=== PATIENT | male | born 1955 | race Caucasian/White ===

== ENCOUNTER → 2025-01-30 | Day surgery (SDC) | payer MEDICARE, OTHER ==
[2025-01-24 10:16] LABS: BASOPHILS % 0.5 % (0.0-1.0); EOSINOPHILS % 5.9 % (0.0-6.0); LYMPHOCYTES % 25.2 % (18.0-39.1); MONOCYTES % 10.0 % (4.4-11.3); NEUTROPHILS % 57.9 % (38.7-80.0); RED CELL DISTRIBUTION WIDTH 11.9 % (11.7-14.4)
[~2025-01-30] MED LIST: ACETAMINOPHEN-1 EAC4 PO; CIALIS5 MG PO; DEXAMETHASONE SOD PHOS INJ 4 MG/ML SDV ONE; FENTANYL CITRATE/PF 100MCG/2 ML INJ ONE; GLYCOPYRROLATE INJ 0.2 MG/ML VIAL ONE; KETOROLAC TROMETHAMINE 30 MG/ML VIAL ONE; LIDOCAINE HCL 2% LOCAL INJ 5 ML SDV VIAL INJ ONE; LOSARTAN POTAS100 MG PO; MIDAZOLAM HCL 2 MG/2 ML VIAL ONE; OMEPRAZOLE40 MG PO; ONDANSETRON HCL INJ 2MG/ML 2ML 2 MG/ML VIAL ONE; PROPOFOL IV EMULSION 10 MG/ML 20 ML VIAL ONE
[2025-01-30] MEDS: LACTATED RINGER'S 1,000 ML ONE (05:59)
[2025-01-30 08:11] VITALS: TEMP 97
[2025-01-30 09:25] VITALS: BP 115/73; PULSE 41; RESP 16; O2SAT 100
== END | disposition home or self-care (01) ==
LOC: OR 05:24
PROVIDERS: ATTEND Plastic Surgery
DX: M79.5 Residual foreign body in soft tissue (principal); I10 Essential (primary) hypertension; E11.9 Type 2 diabetes mellitus without complications; Z86.73 Personal history of transient ischemic attack (TIA), and cerebral infarction without residual deficits; Z79.899 Other long term (current) drug therapy; Z01.810 Encounter for preprocedural cardiovascular examination; Z01.812 Encounter for preprocedural laboratory examination
CPT/HCPCS: 20520; 36415; 85025; 88305; 93005; J0690; J1100; J1885; J2003; J2250; J2405; J2704; J3010; J7121; 88300